=== PATIENT | male | born 1985 | race Caucasian/White ===

== ENCOUNTER 2019-01-12 09:38 | Emergency (ER) | payer BC ==
[~2019-01-12] VITALS: Ht 175.3 cm; Wt 72.6 kg
[2019-01-12 09:38] VITALS: BP_SYST 116
--- NOTE | 2019-01-12 09:38 | NUR ---
BROUGHT BACK TO BED #7, TRIAGED, REPORT GIVEN TO WERNER
[2019-01-12] MEDS ORDERED: NACL 0.9% 1,000 ML IV ONE (10:15)
[2019-01-12 10:35] LABS: BASOPHILS % (AUTO) 0.3 % (0.0-2.0); EOSINOPHILS # (AUTO) 0.1 K/uL (0.0-0.4); EOSINOPHILS % (AUTO) 1.6 % (0.0-4.0); HEMATOCRIT 47.6 % (36-54); HEMOGLOBIN 16.3 g/dL (14.0-18.0); LYMPHOCYTES % (AUTO) 20.2 % (20.5-51.5); MEAN CORPUSCULAR HEMOGLOBIN 31 pg (27-31); MEAN CORPUSCULAR HGB CONC 34 % (32-36); MEAN CORPUSCULAR VOLUME 89 fL (79.0-98.0); MONOCYTES # (AUTO) 0.4 K/uL (0.0-1.0); MONOCYTES % (AUTO) 8.9 % (1.7-9.3); NEUTROPHILS # (AUTO) 3.3 K/uL (1.8-7.7); PLATELET COUNT (AUTO) 171 K/uL (130-430); RED BLOOD CELL COUNT(AUTO) 5.35 MIL/uL (4.2-6.2); RED CELL DISTRIBUTION WIDTH 12.9 % (9.0-15.0); WHITE BLOOD COUNT (AUTO) 4.7 K/uL (4.8-10.8)
[2019-01-12 10:39] LABS: CALCIUM 8.4 mg/dL (8.4-11.0); CREATININE 1.02 mg/dL (0.55-1.30); POTASSIUM 4.2 mmol/L (3.5-5.1)
[2019-01-12 10:44] LABS: ALBUMIN 3.1 g/dL (3.4-4.8); TOTAL BILIRUBIN 1.2 mg/dL (0.0-1.0)
--- NOTE | 2019-01-12 10:53 | NUR ---
Patient is awake, alert, and oriented x4. Girlfriend is at bedside. Patient states that he has had black/tarry stools since Thursday, Diarrhea, nausea, vomiting, and epigastric pain. Patient states he has had a sinus infection that drips overnight, which causes him to vomit yellow emesis that looks like "snot".
--- NOTE | 2019-01-12 11:04 | NUR ---
ER Dr. DACOSTA at bedside examining patient.
--- NOTE | 2019-01-12 11:42 | NUR ---
Pt actively vomiting in ED. Dr. Mott notified. Zofran to be ordered.
[2019-01-12] MEDS ORDERED: ONDANSETRON HCL 4 MG/2 ML VIAL IVP ONE (11:45)
--- NOTE | 2019-01-12 11:49 | NUR ---
Pt reports he does not feel nauseous. Dr. Mott notified. Zofran 4mg wasted.
[2019-01-12 12:25] VITALS: BP_SYST 118
--- NOTE | 2019-01-12 12:25 | NUR ---
Patient given written and verbal discharge instructions and verbalizes understanding. ER MD discussed with patient the results and treatment provided. Patient in stable condition. ID arm band removed. IV catheter removed intact and dressing applied, no active bleeding. Rx of SIMONA & JAQUELINE KING given. Patient educated on pain management and to follow up with PMD. Pain Scale 0/10. Opportunity for questions provided and answered.
== END 2019-01-12 12:25 | disposition home or self-care (01) ==
LOC: SED 09:38
DX: B34.9 Viral infection, unspecified (principal); R11.2 Nausea with vomiting, unspecified; R05 Cough; R09.81 Nasal congestion; Z88.5 Allergy status to narcotic agent
CPT/HCPCS: 36415; 80053; 81002; 83690; 85025; 96360; 99283; J2405; J7030

== ENCOUNTER 2021-04-08 08:39 | Emergency (ER) | payer BC ==
[~2021-04-08] VITALS: Ht 177.8 cm; Wt 70.3 kg
[2021-04-08 08:56] VITALS: BP_SYST 123
--- NOTE | 2021-04-08 09:10 | NUR ---
Pt to bed 4 via wheelchair. Pt is A&Ox4. Pt c/o right ankle pain 12/09 with inflammation noted and redness. Pt was playing hockey yesterday when he stated he crashed into wall and hurt his right ankle. Cap redill in right extremitie is less than 3 seconds and pt has sensation. at bedside. Pt uses wheelchair to ambulate due to pain of right ankle. No chest pain and no sob. Denies n/v. Alletgic to [employer]. No medical conditions pt is aware of. VSS. Bed in lowest position. Addendum: 04/08/21 at 1020 by [email or web address] patient lower right ankle swollen and eccymotic. patient has good circulation, poor motion and good sensation. patient unable to move toes without pain. patient right lower extremity elevated on pillow with ice pack applied. waiting for radiology results.
--- NOTE | 2021-04-08 09:37 | NUR ---
patient to ED with left ankle pain. patient given ice pack at this time and waiting for radiology results. will continue to implement elevation and ice.
--- NOTE | 2021-04-08 09:41 | NUR ---
radiology being completed at this time on ankle
--- NOTE | 2021-04-08 11:27 | NUR ---
PATIENT TO RADIOLOGY IN STABLE CONDITION
--- NOTE | 2021-04-08 13:35 | NUR ---
SPLINE PLACED ON RIGHT LOWER EXTREMITY. PATIENT HAS GOOD CSM. PATIENT DENIES PAIN OR TIGHTNESS. VERBALIZES UNDERSTANDING OF DISCHARGE INSTRUCTIONS OF COMPARTMENT SYNDROME. PATIENT ADMINISTERED CRUTCHES AND ABLE TO DEMONSTRATE CORRECT AMBULATION. CAME WITH GRANDMOTHER'S WHEEL CHAIR. RETURNED HOME WITH PATIENT.
--- NOTE | 2021-04-08 13:37 | NUR ---
Patient given written and verbal discharge instructions and verbalizes understanding. ER MD discussed with patient the results and treatment provided. Patient in stable condition. ID arm band removed. NO IV PLACED THIS VISIT. NO PRESCRIPTION. Patient educated on pain management, COMPARTMENT SYNDROME and to follow up with PMD. Pain Scale . Opportunity for questions provided and answered. Medication side effect fact sheet provided.
[2021-04-08 13:42] VITALS: BP_SYST 116
== END 2021-04-08 13:42 | disposition home or self-care (01) ==
LOC: SED 08:39
DX: S92.191A Other fracture of right talus, initial encounter for closed fracture (principal); Z88.5 Allergy status to narcotic agent; W18.39XA Other fall on same level, initial encounter; Y93.22 Activity, ice hockey; Y92.89 Other specified places as the place of occurrence of the external cause; Y99.8 Other external cause status
CPT/HCPCS: 73700-TC; 76376; 99284